=== PATIENT | male | born 1985 | race Caucasian/White ===

== ENCOUNTER → 2023-11-09 06:37 | Day surgery (SDC) | payer OTHER, SELFPAY | LOC: GI 06:37 | PROVIDERS: ATTENDING PHYSICIAN Internal Medicine Gastroenterology | DX: R93.3 Abnormal findings on diagnostic imaging of other parts of digestive tract (principal); Q43.8 Other specified congenital malformations of intestine; K63.89 Other specified diseases of intestine; K62.1 Rectal polyp | CPT/HCPCS: 45380; 88305; 88341; 88342 ==

== ENCOUNTER → 2023-11-16 06:47 | Outpatient (REF) | payer OTHER, SELFPAY | LOC: MRI 3T 06:47 | PROVIDERS: ATTENDING PHYSICIAN Internal Medicine Gastroenterology | DX: R93.5 Abnormal findings on diagnostic imaging of other abdominal regions, including retroperitoneum (principal) | CPT/HCPCS: 72197; 74183; A9575 ==

== ENCOUNTER → 2024-02-06 06:28 | Day surgery (SDC) | payer OTHER, SELFPAY | LOC: GI 06:28 | PROVIDERS: ATTENDING PHYSICIAN Internal Medicine Gastroenterology | DX: K90.0 Celiac disease (principal); K31.89 Other diseases of stomach and duodenum; K29.50 Unspecified chronic gastritis without bleeding; K31.A19 Gastric intestinal metaplasia without dysplasia, unspecified site; R76.8 Other specified abnormal immunological findings in serum | CPT/HCPCS: 43239; 88305; 88342 ==

== ENCOUNTER → 2025-01-17 13:33 | Outpatient (REF) | payer OTHER, SELFPAY | LOC: RAD 13:33 | PROVIDERS: ATTENDING PHYSICIAN Student in an Organized Health Care Education/Training Program; FAMILY PHYSICIAN Family Medicine | DX: R07.89 Other chest pain (principal) | CPT/HCPCS: 71046 ==